=== PATIENT | female | born 1945 | race Caucasian/White ===

== ENCOUNTER 2020-05-28 08:10 | Day surgery (SDC) | payer MEDICARE, OTHER ==
[~2020-05-28 08:10] MED LIST: Lactated Ringers 1,000 ML IV SCH
[2020-05-28] MEDS ORDERED: Propofol 200 MG/20 ML SDV ONE ×2 (09:23→10:46)
[2020-05-28] MEDS ORDERED: fentaNYL 100 MCG/2 ML SDV ONE (09:23)
--- NOTE | 2020-05-28 12:54 | OR ---
DATE OF SURGERY: 05/28/2020. REFERRING PROVIDER: Marimar Scott MD PRE-OPERATIVE DIAGNOSES: Positive FIT stool card. The patient's last colonoscopy was normal back in 2007 in the [facility], [place]. She does have history of hemorrhoids. She denies any family history of colon cancer. POST-OPERATIVE DIAGNOSES: 1. A total of 7 polyps removed. a. 2 mm cecal polyp removed using cold forceps. b. 3 mm polyp at 60 cm using cold forceps. c. 2 mm polyp at 55 cm removed using cold forceps. d. 4 mm polyp at 50 cm removed using several bites of cold forceps. e. About a 2 cm sessile polyp on haustral fold at about 48 cm removed using multiple passes of hot snare. Clip also placed and area marked with ink. Distance from anal verge may be off due to redundancy of the colon. f. 4 mm and 3 mm polyps at 25 cm. Larger one removed with hot snare and smaller one removed with cold forceps. 2. Positive external hemorrhoidal skin tags, not acutely inflamed. 3. Normal-appearing distal ileum. 4. Redundant colon making measurements from the anal verge inconsistent. PROCEDURE: Colonoscopy with polypectomy x7 (2 using hot snare and 5 using cold forceps). A larger sessile polyp was also marked with ink. A clip had been placed to reinforce the haustral fold after removal of the polyp using multiple passes of hot snare. SURGEON: Tyrese Zaman M.D. ANESTHESIA: Monitored anesthesia care. BOWEL PREP: Good. Марина is a 74-year-old female who was brought to the endoscopy suite after discussing risks and benefits of the procedure. Informed consent was obtained for conscious sedation and colonoscopy with or without biopsy and/or polypectomy. We also discussed possibility of missed lesions. Pre-procedure exam was unremarkable. IV, oxygen, and monitors were placed. The patient was placed in the left lateral decubitus position. Sedation was administered and a digital rectal exam was performed remarkable for significant external hemorrhoidal skin tags present, not acutely inflamed. Colonoscope was passed into the rectum and slowly advanced all the way to the cecum. Cecum was viewed and photographed. Ileocecal valve was intubated and distal ileum was normal in appearance. Cecum did reveal 2 mm polyp, removed using cold forceps. The colonoscope was slowly withdrawn and the mucosa was closed observed in a direct circumferential manner. The ascending colon was unremarkable. The transverse colon revealed 3 mm polyp at 60 cm, 2 mm polyp at 55 cm, and 4 mm polyp at 50 cm, all removed using cold forceps. Near the splenic flexure, there was a 2 cm larger sessile polyp along the haustral fold. This was about 48 cm from the anal verge on the way out and about 60 cm from the anal verge on the way back in. This was removed using multiple passes of the hot snare as well as cold snare for a few of the smaller pieces. Clip was placed to reinforce the base of the area after removal. The area was also marked with ink. The descending colon was otherwise unremarkable. The sigmoid colon revealed several small hyperplastic appearing polyps. The largest of which were 4 mm and 3 mm polyps between 20 and 25 cm. The larger one removed with hot snare and smaller one removed with cold forceps. Retroflexion was performed and rectal mucosa was unremarkable internally. Scope was removed. The patient tolerated the procedure well. The patient was monitored until that baseline status. Discharge instructions were reviewed and the patient was discharged in good condition. COMPLICATIONS: None. TOTAL TIME: 51 minutes. ESTIMATED BLOOD LOSS: About 2 mL. RECOMMENDATIONS/FOLLOW-UP: We will await results of path report to determine ideal followup interval. The patient likely to need early followup in 6 to 12 months pending the path report. We will send letter with results and recommendations. I would like to kindly thank Dr. Scott for this referral. DMB: 05/28/2020 11:27:43 MODL: 05/28/2020 12:22:13 /[id number]
== END 2020-05-28 12:10 | disposition home or self-care (01) ==
LOC: VM.SDS 08:10
PROVIDERS: ATTEND Family Medicine
DX: D12.0 Benign neoplasm of cecum (principal); D12.3 Benign neoplasm of transverse colon; K64.4 Residual hemorrhoidal skin tags; E78.00 Pure hypercholesterolemia, unspecified; N39.3 Stress incontinence (female) (male); G89.29 Other chronic pain; E55.9 Vitamin D deficiency, unspecified; H61.21 Impacted cerumen, right ear; Z79.899 Other long term (current) drug therapy; Z98.890 Other specified postprocedural states; Z87.891 Personal history of nicotine dependence; Z01.812 Encounter for preprocedural laboratory examination; Z20.828 Contact with and (suspected) exposure to other viral communicable diseases
CPT/HCPCS: 00812; 45380; 45381; 45385; 88305; J2704; J3010; J7120; U0002

== ENCOUNTER 2021-06-10 07:54 | Day surgery (SDC) | payer MEDICARE, OTHER ==
[2021-06-10] MEDS ORDERED: Propofol 200 MG/20 ML SDV ONE ×2 (08:23→10:55)
[2021-06-10] MEDS ORDERED: fentaNYL 100 MCG/2 ML SDV ONE (08:23)
--- NOTE | 2021-06-11 09:36 | OR ---
PREOPERATIVE DIAGNOSIS: History of colon polyps. 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 We are doing 1 year followup on this area that was tattooed previously. The patient denies any family history of colon cancer. POSTOPERATIVE DIAGNOSES: 1. Total of 5 polyps removed (3 using hot snare and 2 using cold forceps). a. 2 mm polyp at 70 cm, removed using cold forceps. b. 10 mm and 15 mm x 7 mm sessile polyps (previously tattooed site). These were removed using several passes of the hot snare. Another 2 mm polyp at 60 cm, removed using cold forceps. c. 5 mm polyp at 40 cm, removed using hot snare. 2. Very redundant colon making distances from the anal verge inconsistent. 3. Normal-appearing distal ileum. PROCEDURE: Colonoscopy with polypectomy x5 (3 using hot snare and 2 using cold forceps). SURGEON: Tyrese Zaman M.D. ANESTHESIA: Monitored anesthesia care. BOWEL PREP: Fair. DESCRIPTION OF PROCEDURE: Марина is a 75-year-old female who was brought to the endoscopy suite after discussing risks and benefits of the procedure. Informed consent was obtained for conscious sedation and colonoscopy with or without biopsy and/or polypectomy. We also discussed possibility of missed lesions. Pre-procedure exam was unremarkable. IV, oxygen, and monitors were placed. The patient was placed in the left lateral decubitus position. Sedation was administered and a digital rectal exam was performed and unremarkable. Colonoscope was passed into the rectum and slowly advanced all the way to the cecum. Cecum was viewed and photographed. Ileocecal valve was intubated and distal ileum was normal in appearance. The patient did have a very redundant colon making distances from the anal verge inconsistent. Did require some moderate scope maneuvering and some abdominal pressure to obtain cecal intubation. The colonoscope was slowly withdrawn and the mucosa was closed observed in a direct circumferential manner. The ascending colon was unremarkable. The transverse colon revealed 2 mm polyp at 70 cm, removed using cold forceps. The transition between the transverse and descending colon near the splenic flexure revealed the previously tattooed area. Within the borders of that area, the patient was noted to have separate 10 mm sessile polyp as well as a 15 mm x 7 mm sessile polyp. These were both removed using several passes of the hot snare. Within the generalized area, there was also a 2 mm polyp, removed using cold forceps. The descending colon revealed a 5 mm polyp at 40 cm, removed using hot snare. Sigmoid colon unremarkable. Rectal mucosa was unremarkable. Scope was removed. The patient tolerated the procedure well. The patient was monitored until that baseline status. Discharge instructions were reviewed and the patient was discharged in good condition. COMPLICATIONS: None. TOTAL TIME: 41 minutes. ESTIMATED BLOOD LOSS: 1 to 2 mL. RECOMMENDATIONS/FOLLOWUP: We will await results of path report to determine ideal followup interval. I am thinking followup will be within the next 1 to 2 years pending path report given the recurrent sessile polyps near the splenic flexure area that was tattooed previously. I would like to kindly thank Dr. Scott for this referral. DMB: 06/10/2021 14:29:13 MODL: 06/10/2021 15:18:52 /[id number]
== END 2021-06-10 12:30 | disposition home or self-care (01) ==
LOC: VM.SDS 07:54
PROVIDERS: ATTEND Family Medicine
DX: Z12.11 Encounter for screening for malignant neoplasm of colon (principal); D12.4 Benign neoplasm of descending colon; D12.3 Benign neoplasm of transverse colon; E78.00 Pure hypercholesterolemia, unspecified; R73.01 Impaired fasting glucose; L65.9 Nonscarring hair loss, unspecified; M81.0 Age-related osteoporosis without current pathological fracture; K21.9 Gastro-esophageal reflux disease without esophagitis; E55.9 Vitamin D deficiency, unspecified; G89.29 Other chronic pain; M25.511 Pain in right shoulder; Z79.899 Other long term (current) drug therapy; Z98.890 Other specified postprocedural states; Z87.891 Personal history of nicotine dependence
CPT/HCPCS: 00811; 88305; J2704; J3010; J7120

== ENCOUNTER 2022-12-23 06:53 | Day surgery (SDC) | payer MEDICARE, OTHER ==
[~2022-12-23 06:53] MED LIST changes: +Sodium Chloride 0.9% 10 ML Syringe FLUSH PRN
[2022-12-23] MEDS: Lactated Ringers 1,000 ML IV SCH (07:06)
[2022-12-23] MEDS ORDERED: Propofol 200 MG/20 ML SDV ONE (07:31)
[2022-12-23] MEDS ORDERED: fentaNYL 100 MCG/2 ML SDV ONE (07:31)
== END 2022-12-23 11:10 | disposition home or self-care (01) ==
LOC: VM.SDS 06:53
PROVIDERS: ATTEND Student in an Organized Health Care Education/Training Program
DX: Z12.11 Encounter for screening for malignant neoplasm of colon (principal); D12.0 Benign neoplasm of cecum; D12.5 Benign neoplasm of sigmoid colon; D12.2 Benign neoplasm of ascending colon; K63.89 Other specified diseases of intestine; E78.00 Pure hypercholesterolemia, unspecified; R73.01 Impaired fasting glucose; E55.9 Vitamin D deficiency, unspecified; K21.9 Gastro-esophageal reflux disease without esophagitis; M81.0 Age-related osteoporosis without current pathological fracture; Z90.710 Acquired absence of both cervix and uterus; Z79.899 Other long term (current) drug therapy; Z87.891 Personal history of nicotine dependence
CPT/HCPCS: 88305; J2704; J3010; J7120